=== PATIENT | male | born 1975 | race Native Hawaiian/Other Pacific Islander ===

== ENCOUNTER 2024-01-03 12:33 | Emergency (ER) | payer MEDICAID ==
[2024-01-03] MEDS ORDERED: Sodium Chloride 0.9% 500 ML IV SCH (13:15)
[2024-01-03 13:37] LABS: BASOPHILS ABSOLUTE AUTO 0.06 K/uL (0.00-0.10); BASOPHILS PERCENT AUTO 0.6 % (0.1-1.3); EOSINOPHILS ABSOLUTE AUTO 0.43 K/uL (0.00-0.40); EOSINOPHILS PERCENT AUTO 4.3 % (0.0-5.4); HEMATOCRIT 40.8 % (38.4-49.7); HEMOGLOBIN 13.9 g/dL (12.9-16.9); IMMATURE GRAN PERCENT AUTO 0.2 % (0.0-0.7); LYMPHOCYTES ABSOLUTE AUTO 1.78 K/uL (0.8-3.3); LYMPHOCYTES PERCENT AUTO 17.7 % (11.4-47.7); MEAN CORPUSCULAR HEMOGLOBIN 27.9 pg (31.6-35.5); MEAN CORPUSCULAR HGB CONC 34.1 g/dL (31.6-35.5); MEAN CORPUSCULAR VOLUME 81.9 fL (81.4-99.0); MONOCYTES ABSOLUTE AUTO 0.88 K/uL (0.20-0.90); MONOCYTES PERCENT AUTO 8.8 % (3.3-12.6); NEUTROPHILS ABSOLUTE AUTO 6.88 K/uL (1.0-7.6); NEUTROPHILS PERCENT AUTO 68.4 % (40.0-78.1); PLATELET COUNT,PLT 278 K/uL (130-375); RED BLOOD CELL COUNT 4.98 M/uL (4.14-5.76); WHITE BLOOD CELL COUNT,WBC 10.1 K/uL (3.2-11.0)
[2024-01-03 13:43] LABS: IMMATURE GRAN ABSOLUTE AUTO 0.02 K/uL (0.00-0.23)
[2024-01-03 14:01] LABS: A/G RATIO 0.7 (1.2-2.2); ALANINE AMINOTRANSFERASE,ALT 25 U/L (12-78); ALBUMIN 2.9 g/dL (3.4-5.0); ALKALINE PHOSPHATASE 116 U/L (46-116); ASPARTATE AMNIOTRANSFERASE,AST 15 U/L (15-37); BILIRUBIN TOTAL 0.7 mg/dL (0.2-1.0); BLOOD UREA NITROGEN,BUN 10 mg/dL (7-18); C-REACTIVE PROTEIN 1.21 mg/dL (<0.50); CALCIUM 9.4 mg/dL (8.5-10.1); CARBON DIOXIDE,CO2 27 mmol/L (21-32); CHLORIDE,CL 96 mmol/L (100-108); CREATININE 0.7 mg/dL (0.8-1.3); EST CRCL DRUG DOSING (CG) 126.25 mL/min; ESTIMATED GFR 112 mL/min (>60); GLUCOSE RANDOM 208 mg/dL (74-106); POTASSIUM,K 4.8 mmol/L (3.6-5.2); PROTEIN TOTAL,TP 7.3 g/dL (6.4-8.2); SODIUM,NA 132 mmol/L (140-148)
[2024-01-03 14:05] LABS: ANION GAP 13.8 mmol/L (5.0-14.0)
[2024-01-03 14:06] LABS: LACTIC ACID 1.8 mmol/L (0.4-2.0)
[2024-01-03] MEDS: Sodium Chloride 0.9% 60 ML IV SCH (14:26)
[2024-01-03] MEDS: Sodium Chloride 0.9% 10 ML Syringe FLUSH ONE (14:26)
[2024-01-03] MEDS: Iopamidol 612 MG/ML 100 ML Bottle IV SCH (14:26)
[2024-01-03] MEDS: Sodium Chloride 0.9% 500 ML IV SCH (14:51)
[2024-01-03 16:41] LABS: APPEARANCE,URINE TURBID (CLEAR); BILIRUBIN,URINE NEGATIVE (NEGATIVE); COLOR,URINE YELLOW (YELLOW); GLUCOSE,URINE NEGATIVE (NEGATIVE); KETONES,URINE NEGATIVE (NEGATIVE); LEUKOCYTE ESTERASE,URINE LARGE (NEGATIVE); NITRITE,URINE NEGATIVE (NEGATIVE); OCCULT BLOOD,URINE MODERATE (NEGATIVE); PROTEIN,URINE NEGATIVE (NEGATIVE); UROBILINOGEN,URINE 0.2 EU/dL (0.2-1.0)
[2024-01-03 17:00] LABS: RBC,URINE 0-5 (0-5); WBC,URINE PACKED (0-5)
[2024-01-03 17:01] LABS: AMORPHOUS SEDIMENT,URINE NOT SEEN; BACTERIA,URINE MODERATE; EPITHELIAL CELLS,URINE RARE; MUCUS,URINE NOT SEEN
[2024-01-03] MEDS: cefTRIAXone 1 GM in Sodium Chloride 0.9% 50 ML IV ONE (17:27)
[2024-01-03] MEDS ORDERED: Naloxone 0.4 MG/ML SDV IVPUSH PRN (18:45)
[2024-01-03] MEDS: HYDROmorphone 0.5 MG/0.5 ML Syringe IVPUSH ONE (19:14)
[2024-01-04] MEDS ORDERED: Midodrine 5 MG Tab GTUBE ONE (17:45)
== END 2024-01-03 21:00 ==
LOC: JP.ED 12:33
DX: N30.01 Acute cystitis with hematuria (principal); L89.151 Pressure ulcer of sacral region, stage 1; J90 Pleural effusion, not elsewhere classified; G82.50 Quadriplegia, unspecified; E11.9 Type 2 diabetes mellitus without complications; Z88.8 Allergy status to other drugs, medicaments and biological substances; Z79.51 Long term (current) use of inhaled steroids; Z79.899 Other long term (current) drug therapy
CPT/HCPCS: 36415; 71250; 74177; 80053; 81001; 83605; 84145; 85025; 86140; 87040; 87070; 87086; 87205; 96361; 96365; 96375; 99285; C1758; J0696; J1171; J3490; J7040; Q9967; 87077; 87186

== ENCOUNTER 2024-01-24 19:48 | Emergency (ER) | payer MEDICAID ==
[2024-01-24 20:33] LABS: BASOPHILS ABSOLUTE AUTO 0.06 K/uL (0.00-0.10); BASOPHILS PERCENT AUTO 0.3 % (0.1-1.3); HEMATOCRIT 42.6 % (38.4-49.7); IMMATURE GRAN ABSOLUTE AUTO 0.12 K/uL (0.00-0.23); IMMATURE GRAN PERCENT AUTO 0.5 % (0.0-0.7); LYMPHOCYTES ABSOLUTE AUTO 1.06 K/uL (0.8-3.3); LYMPHOCYTES PERCENT AUTO 4.8 % (11.4-47.7); MEAN CORPUSCULAR HEMOGLOBIN 28.1 pg (31.6-35.5); MEAN CORPUSCULAR HGB CONC 32.9 g/dL (31.6-35.5); MEAN CORPUSCULAR VOLUME 85.4 fL (81.4-99.0); MONOCYTES ABSOLUTE AUTO 1.27 K/uL (0.20-0.90); MONOCYTES PERCENT AUTO 5.8 % (3.3-12.6); NEUTROPHILS ABSOLUTE AUTO 19.35 K/uL (1.0-7.6); NEUTROPHILS PERCENT AUTO 88.6 % (40.0-78.1); PLATELET COUNT,PLT 444 K/uL (130-375); RED BLOOD CELL COUNT 4.99 M/uL (4.14-5.76); WHITE BLOOD CELL COUNT,WBC 21.9 K/uL (3.2-11.0)
[2024-01-24] MEDS: HYDROmorphone 0.5 MG/0.5 ML Syringe IVPUSH ONE ×2 (20:33→22:49)
[2024-01-24 20:49] LABS: ANION GAP 13.2 mmol/L (5.0-14.0); CALCIUM 9.4 mg/dL (8.5-10.1); CREATININE 0.9 mg/dL (0.8-1.3); EST CRCL DRUG DOSING (CG) 107.78 mL/min; POTASSIUM,K 4.2 mmol/L (3.6-5.2)
[2024-01-24] MEDS: Ertapenem 1 GM in Sodium Chloride 0.9% 50 ML IV ONE (21:23)
[2024-01-24] MEDS: Sodium Chloride 0.9% 60 ML IV SCH (21:35)
[2024-01-24] MEDS: Iopamidol 612 MG/ML 100 ML Bottle IV SCH (21:35)
[2024-01-24] MEDS: Diazepam 5 MG Tab PO ONE (22:50)
[2024-01-24] MEDS ORDERED: Sodium Chloride 0.9% 1,000 ML IV SCH (23:30)
[2024-01-24] MEDS: Sodium Chloride 0.9% 1,000 ML IV SCH (23:58)
== END 2024-01-25 00:05 ==
LOC: JP.ED 19:48
DX: J69.0 Pneumonitis due to inhalation of food and vomit (principal); J90 Pleural effusion, not elsewhere classified; G82.50 Quadriplegia, unspecified; I10 Essential (primary) hypertension; J45.909 Unspecified asthma, uncomplicated; E11.9 Type 2 diabetes mellitus without complications; Z90.49 Acquired absence of other specified parts of digestive tract; Z96.642 Presence of left artificial hip joint; Z88.8 Allergy status to other drugs, medicaments and biological substances; Z79.899 Other long term (current) drug therapy
CPT/HCPCS: 36415; 71260; 74177; 80048; 83605; 84145; 85025; 87040; 87070; 87077; 87186; 87205; 93005; 96365; 96375; 96376; 99285; A9270; J1171; J1335; J3490; J7030; Q9967; 93010

== ENCOUNTER 2024-09-15 10:05 | Emergency (ER) | payer MEDICAID ==
[2024-09-15 11:12] LABS: BASOPHILS ABSOLUTE AUTO 0.06 K/uL (0.00-0.10); BASOPHILS PERCENT AUTO 1.0 % (0.1-1.3); EOSINOPHILS ABSOLUTE AUTO 0.20 K/uL (0.00-0.40); EOSINOPHILS PERCENT AUTO 3.3 % (0.0-5.4); IMMATURE GRAN ABSOLUTE AUTO 0.02 K/uL (0.00-0.23); IMMATURE GRAN PERCENT AUTO 0.3 % (0.0-0.7); LYMPHOCYTES ABSOLUTE AUTO 1.12 K/uL (0.8-3.3); LYMPHOCYTES PERCENT AUTO 18.4 % (11.4-47.7); MONOCYTES ABSOLUTE AUTO 0.37 K/uL (0.20-0.90); MONOCYTES PERCENT AUTO 6.1 % (3.3-12.6); NEUTROPHILS ABSOLUTE AUTO 4.33 K/uL (1.0-7.6); NEUTROPHILS PERCENT AUTO 70.9 % (40.0-78.1); PLATELET COUNT,PLT 224 K/uL (130-375); RED BLOOD CELL COUNT 3.73 M/uL (4.14-5.76); WHITE BLOOD CELL COUNT,WBC 6.1 K/uL (3.2-11.0)
[2024-09-15 11:32] LABS: A/G RATIO 0.8 (1.2-2.2); ALANINE AMINOTRANSFERASE,ALT 16 U/L (12-78); ASPARTATE AMNIOTRANSFERASE,AST 12 U/L (15-37); BILIRUBIN TOTAL 1.2 mg/dL (0.2-1.0); BLOOD UREA NITROGEN,BUN 8 mg/dL (7-18); CARBON DIOXIDE,CO2 30 mmol/L (21-32); CHLORIDE,CL 103 mmol/L (100-108); CREATINE KINASE,CK 27 U/L (39-308); CREATININE 0.4 mg/dL (0.8-1.3); EST CRCL DRUG DOSING (CG) 239.81 mL/min; ESTIMATED GFR 132 mL/min (>60); GLUCOSE RANDOM 185 mg/dL (74-106); POTASSIUM,K 4.2 mmol/L (3.6-5.2); PROTEIN TOTAL,TP 6.4 g/dL (6.4-8.2); SODIUM,NA 138 mmol/L (140-148)
[2024-09-15 11:57] LABS: APPEARANCE,URINE CLEAR (CLEAR); GLUCOSE,URINE NEGATIVE (NEGATIVE); OCCULT BLOOD,URINE NEGATIVE (NEGATIVE)
[2024-09-15 12:13] LABS: SQUAMOUS EPITHELIAL CELLS,UR RARE /HPF; UROTHELIAL CELLS,URINE NOT SEEN /HPF
[2024-09-15] MEDS: Magnesium Sulfate 2 GM/50 mL 2 GM in Premix Bag 1 BAG IV ONE (14:34)
== END 2024-09-15 15:56 | disposition home or self-care (01) ==
LOC: JP.ED 10:05
DX: R56.9 Unspecified convulsions (principal); L03.032 Cellulitis of left toe; B35.1 Tinea unguium; E83.42 Hypomagnesemia; I10 Essential (primary) hypertension; E78.00 Pure hypercholesterolemia, unspecified; E11.9 Type 2 diabetes mellitus without complications; J45.909 Unspecified asthma, uncomplicated; Z90.49 Acquired absence of other specified parts of digestive tract
CPT/HCPCS: 36415; 71045; 71045-26; 80053; 81001; 82550; 83735; 85025; 86140; 99283; 99284

== ENCOUNTER 2025-01-07 12:30 | Emergency (ER) | payer MEDICAID ==
[2025-01-07 13:06] LABS: BASOPHILS ABSOLUTE AUTO 0.06 K/uL (0.00-0.10); BASOPHILS PERCENT AUTO 0.8 % (0.1-1.3); EOSINOPHILS ABSOLUTE AUTO 0.25 K/uL (0.00-0.40); EOSINOPHILS PERCENT AUTO 3.4 % (0.0-5.4); IMMATURE GRAN PERCENT AUTO 0.3 % (0.0-0.7); LYMPHOCYTES ABSOLUTE AUTO 0.53 K/uL (0.8-3.3); LYMPHOCYTES PERCENT AUTO 7.1 % (11.4-47.7); MONOCYTES ABSOLUTE AUTO 0.53 K/uL (0.20-0.90); MONOCYTES PERCENT AUTO 7.1 % (3.3-12.6); NEUTROPHILS ABSOLUTE AUTO 6.05 K/uL (1.0-7.6); NEUTROPHILS PERCENT AUTO 81.3 % (40.0-78.1); PLATELET COUNT,PLT 234 K/uL (130-375); RED BLOOD CELL COUNT 5.00 M/uL (4.14-5.76); WHITE BLOOD CELL COUNT,WBC 7.4 K/uL (3.2-11.0)
[2025-01-07 13:09] LABS: IMMATURE GRAN ABSOLUTE AUTO 0.02 K/uL (0.00-0.23)
[2025-01-07 13:26] LABS: A/G RATIO 0.8 (1.2-2.2); ALANINE AMINOTRANSFERASE,ALT 21 U/L (12-78); ASPARTATE AMNIOTRANSFERASE,AST 15 U/L (15-37); BILIRUBIN TOTAL 0.7 mg/dL (0.2-1.0); BLOOD UREA NITROGEN,BUN 15 mg/dL (7-18); CARBON DIOXIDE,CO2 28 mmol/L (21-32); CHLORIDE,CL 99 mmol/L (100-108); CREATININE 0.5 mg/dL (0.8-1.3); EST CRCL DRUG DOSING (CG) 191.84 mL/min; ESTIMATED GFR 123 mL/min (>60); GLUCOSE RANDOM 215 mg/dL (74-106); POTASSIUM,K 3.9 mmol/L (3.6-5.2); PROTEIN TOTAL,TP 6.9 g/dL (6.4-8.2); SODIUM,NA 135 mmol/L (140-148)
== END 2025-01-07 17:00 ==
LOC: JP.ED 12:30
DX: R05.1 Acute cough (principal); R09.02 Hypoxemia; E11.9 Type 2 diabetes mellitus without complications; J45.909 Unspecified asthma, uncomplicated; Z88.8 Allergy status to other drugs, medicaments and biological substances; Z79.899 Other long term (current) drug therapy; Z79.82 Long term (current) use of aspirin; Z90.49 Acquired absence of other specified parts of digestive tract; Z87.891 Personal history of nicotine dependence
CPT/HCPCS: 36415; 71045; 80053; 83605; 85025; 96365; 99285; A9270; J0696; J7620; 99284